=== PATIENT | female | born 1940 | race Caucasian/White ===

== ENCOUNTER → 2023-11-18 13:36 | Outpatient (BNVA) | payer OTHER, SELFPAY | PROVIDERS: Visit Provider Emergency Medicine | DX: R09.81 Nasal congestion (principal) | CPT/HCPCS: 87400; 87426 ==

== ENCOUNTER → 2023-11-30 10:45 | Outpatient (BNVA) | payer OTHER, SELFPAY | PROVIDERS: Visit Provider Family Medicine | DX: I50.9 Heart failure, unspecified (principal); E78.5 Hyperlipidemia, unspecified; E11.9 Type 2 diabetes mellitus without complications; M10.9 Gout, unspecified | CPT/HCPCS: 80053; 80061; 81000; 83036; 84439; 84443; 84550; 85025 ==

== ENCOUNTER 2024-04-01 21:55 | Emergency (ER) | payer OTHER, SELFPAY ==
--- NOTE | 2024-04-01 21:59 | XRR_ITS ---
PROCEDURE INFORMATION: Exam: XR Chest Exam date and time: 04/01/2024 10:13 PM Age: 83 years old Clinical indication: Pain; Chest pressure; Prior surgery; Surgery date: 6+ months; Surgery type: Heart valve; Additional info: Cp TECHNIQUE: Imaging protocol: Radiologic exam of the chest. Views: 1 view. COMPARISON: No relevant prior studies available. FINDINGS: Lungs: Bibasilar atelectasis versus infiltrate. Emphysematous changes. Pleural spaces: Unremarkable. No pleural effusion. No pneumothorax. Heart/Mediastinum: Cardiomegaly. TAVR. Bones/joints: Unremarkable. XR/XR chest 1V portable [id number] IMPRESSION: 1. Bibasilar atelectasis versus infiltrate. 2. Cardiomegaly. 3. Emphysematous changes. 4. TAVR.
--- NOTE | 2024-04-01 21:59 | ECG_ITS ---
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 Measurements Intervals [place] Rate: 73 P: 81 MS: 193 QRS: -83 QRSD: 137 T: 93 QT: 406 QTc: 449 Interpretive Statements SINUS RHYTHM INTRAVENTRICULAR CONDUCTION DELAY [130+ ms QRS DURATION] LEFT VENTRICULAR HYPERTROPHY AND ST-T CHANGE [VOLTAGE CRITERIA PLUS ST/T ABNORMALITY] POSSIBLE ANTEROSEPTAL MYOCARDIAL INFARCTION , OF INDETERMINATE AGE [30 ms Q WAVE IN V1-V4] No previous ECG available for comparison Electronically Signed On 04-03-2024 0:14:04 CDT by Araceli Duran M.D. [id number]
[2024-04-01 22:05] VITALS: BP 152/80; PULSE 71; RESP 20; TEMP 36.1
[2024-04-01 22:52] LABS: Basophils # 0.1 10^3/uL (0.0-0.1); Basophils % 0.4 %; Eosinophils # 0.1 10^3/uL (0.0-0.8); Eosinophils % 0.7 %; Hematocrit 51.9 % (36-47); Lymphocytes # 1.1 10^3/uL (0.8-4.8); Lymphocytes % 7.2 %; Mean Corpuscular HGB Conc 31.4 g/dL (30-55); Mean Platelet Volume 9.7 fL (7.4-10.4); Monocytes % 6.5 %; Neutrophils # 12.46 10^3/uL (1.8-7.7); Neutrophils % 84.9 %; Nucleated Red Blood Cells % 0 %; Platelet Count 179 10^3/cmm (157-399); Red Blood Count 5.09 10^6/uL (3.85-5.65); Red Cell Distribution Width 14.6 % (12.1-15.1); White Blood Count 14.69 10^3/uL (3.29-11.43)
[2024-04-01 23:00] VITALS: BP 190/64; PULSE 83; RESP 19; O2SAT 83
[2024-04-01 23:04] LABS: INR 1.04 (0.8-1.2)
[2024-04-01 23:09] LABS: Alanine Aminotransferase 9 U/L (0-33); Alkaline Phosphatase 95 U/L (35-105); Anion Gap 19.5 (5-19); Aspartate Amino Transferase 14 U/L (0-32); Blood Urea Nitrogen 52 mg/dL (8-23); Carbon Dioxide 22 mmol/L (22-29); Chloride 102 mmol/L (98-107); Creatinine Clr Calc Pharmacy 19.2233; Globulin 2.3 g/dL (1.3-4.6); Glucose 289 mg/dL (65-115); Lipase 35 U/L (13-60); Osmolality Calculated 313 mOsm/kg (285-295); Potassium 4.5 mmol/L (3.5-5.1); Sodium 139 mmol/L (136-145); Total Bilirubin 0.6 mg/dL (0.15-1.2); Total Protein 6.3 g/dL (6.6-8.7)
--- NOTE | 2024-04-01 23:11 | W.ED.CHESTPA ---
HPI - Chest Pain General: Chief Complaint: Chest Pain Stated Complaint: CP Time Seen by Provider: 04/01/24 23:05 History of Present Illness: Patient presents to the ER with about a 30-minute history of chest pain. Patient does not do anything when this pain started nor did she do anything anyway on its own. Patient denies any nausea vomiting, shortness of breath, diaphoresis, patient does have congestive heart failure and has 2 cardiac stents and aortic valve replaced. Patient is on Plavix and Bumex. Patient is pain-free at this time. Related Data Home Medications Medication Instructions Recorded Confirmed levothyroxine 50 mcg capsule 50 mcg PO DAILY 11/18/23 03/13/24 pantoprazole 40 mg tablet,delayed 40 mg PO DAILY 11/18/23 03/13/24 release Previous Rx's Medication Instructions Recorded allopurinol 100 mg tablet 100 mg PO DAILY #90 tabs 12/04/23 metoprolol tartrate 50 mg tablet 50 mg PO DAILY #180 tabs 12/04/23 pravastatin 80 mg tablet 80 mg PO DAILY #90 tabs 12/11/23 coQ10 (ubiquinol) 100 mg capsule 100 mg PO BID #180 caps 01/02/24 (Qunol Tip CoQ10) bumetanide 2 mg tablet 2 mg PO BID #120 tabs 01/25/24 cholecalciferol (vitamin D3) 250 250 mcg PO .qweekly #24 caps 03/13/24 mcg (10,000 unit) capsule potassium chloride 20 mEq 20 meq PO DAILY #90 tabs 03/13/24 tablet,extended release clopidogrel 75 mg tablet See Rx Instructions .Route 03/24/24 .COMPLEX #30 tabs Allergies Allergy/AdvReac Type Severity Reaction Status Date / Time acetaminophen [From Percocet] Allergy ADR-Irritab Verified 03/13/24 10:39 le albuterol Allergy ADR-Irritab Verified 03/13/24 10:39 le oxycodone [From Percocet] Allergy ADR-Irritab Verified 03/13/24 10:39 le Review of Systems General: Reports: 10 or more systems reviewed and unremarkable except in HPI and below PFSH ED PFSH: Medical History Hyperlipidemia Peripheral artery disease 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 Jain 01/31 History of right-sided carotid endarterectomy [facility] Polanco 01/29 Hx of thyroidectomy partial, 1999, History of hysterectomy History of angioplasty History of left hip replacement History of endarterectomy Social History Smoking and tobacco/nicotine status: former use of tobacco/nicotine Alcohol intake: never Substance/Drug Use: never Adopted: Yes (Grew up in foster care but never was adopted, knew mother and father) Caregiver/support person: No Lives independently: Yes Physical Exam Const: COMMON NORMALS: no acute distress, average body habitus, patient oriented x3, no limitations, healthy appearing, alert and well nourished HENMT: COMMON NORMALS: normocephalic, atraumatic, hearing grossly normal bilaterally, external ears normal, Normal external nose present and moist oral mucous membranes HEAD & SCALP: normocephalic and atraumatic NOSE: Normal external nose present EXTERNAL EAR: Yes external ears normal Neck/C-Spine: COMMON NORMALS: no JVD Chest: COMMONS NORMALS: normal inspection of the chest and normal palpation of entire chest wall Resp: COMMON NORMALS: normal respiratory effort, No retractions, No use of accessory muscles and clear to auscultation bilaterally AUSCULTATION: clear to auscultation bilaterally Cardio: COMMON NORMALS: no JVD, regular rate, regular rhythm, S1 normal heart sound present, S2 normal heart sound present, No gallops present (Cardio), No clicks present (Cardio), No murmurs present (Cardio) and No rub (Cardio) RATE: regular rate RHYTHM: regular rhythm HEART SOUNDS: S1 normal heart sound present and S2 normal heart sound present GI: COMMON NORMALS: Normal to inspection, nondistended, normoactive bowel sounds present, Soft to palpation, non-tender, No hepatosplenomegaly present and no masses PALPATION: Yes Soft to palpation and Yes No hepatosplenomegaly present Neuro: COMMON NORMALS: patient oriented x3 SENSORIUM/ORIENTATION: Yes alert Course Vital Signs: Vital signs: Vital Signs Temperature 97.0 F L 04/01/24 22:05 Pulse Rate 57 L 04/02/24 01:00 Respiratory Rate 20 H 04/02/24 01:00 Blood Pressure 113/55 04/02/24 01:00 Pulse Oximetry 89 L 04/02/24 01:00 Oxygen Delivery Me thod Nasal Cannula 04/02/24 00:00 Oxygen Flow Rate 2 04/02/24 00:00 MDM - Chest Pain Medical Decision Making Patient was worked up in a standard cardiac fashion with serial EKGs, enzymes, lab work, discussed his results with patient patient has oxygen at home. Patient be discharged home to follow-up with PCP. Differential Diagnosis Unlikely acute massive pulmonary embolism, acute respiratory failure, acute myocardial infarction, cardiac arrest or sudden cardiac Medical Records I reviewed the patient's medical records. Lab Data I reviewed the patient's lab results. 04/01/24 22:40 04/01/24 22:40 Radiology Impressions Chest X-Ray 04/01/24 21:59 IMPRESSION: 1. Bibasilar atelectasis versus infiltrate. 2. Cardiomegaly. 3. Emphysematous changes. 4. TAVR. Laboratory Results WBC 14.69 10^3/uL (3.29-11.43) H 04/01/24 22:40 RBC 5.09 10^6/uL (3.85-5.65) 04/01/24 22:40 Hgb 16.30 g/dL (11.27-16.99) 04/01/24 22:40 Hct 51.9 % (36-47) H 04/01/24 22:40 MCV 102.0 fl (85-98) H 04/01/24 22:40 MCH 32.0 pg (27-33) 04/01/24 22:40 MCHC 31.4 g/dL (30-55) 04/01/24 22:40 RDW 14.6 % (12.1-15.1) 04/01/24 22:40 Plt Count 179 10^3/cmm (157-399) 04/01/24 22:40 MPV 9.7 fL (7.4-10.4) 04/01/24 22:40 Neut % (Auto) 84.9 % 04/01/24 22:40 Lymph % (Auto) 7.2 % 04/01/24 22:40 Jennings % (Auto) 6.5 % 04/01/24 22:40 Eos % (Auto) 0.7 % 04/01/24 22:40 Baso % (Auto) 0.4 % 04/01/24 22:40 Neut # (Auto) 12.46 10^3/uL (1.8-7.7) H 04/01/24 22:40 Lymph # (Auto) 1.1 10^3/uL (0.8-4.8) 04/01/24 22:40 Jennings # (Auto) 1.0 10^3/uL (0.2-0.9) H 04/01/24 22:40 Eos # (Auto) 0.1 10^3/uL (0.0-0.8) 04/01/24 22:40 Baso # (Auto) 0.1 10^3/uL (0.0-0.1) 04/01/24 22:40 Nucleated RBC % (auto) 0 % 04/01/24 22:40 Nucleated RBCs # 0.0 /100WBC 04/01/24 22:40 PT 14.00 SECONDS (12.1-14.9) 04/01/24 22:40 INR 1.04 (0.8-1.2) 04/01/24 22:40 Sodium 139 mmol/L (136-145) 04/01/24 22:40 Potassium 4.5 mmol/L (3.5-5.1) 04/01/24 22:40 Chloride 102 mmol/L (98-107) 04/01/24 22:40 Carbon Dioxide 22 mmol/L (22-29) 04/01/24 22:40 Anion Gap 19.5 (5-19) H 04/01/24 22:40 BUN 52 mg/dL (8-23) H 04/01/24 22:40 Creatinine 2.3 mg/dL (0.5-0.9) H 04/01/24 22:40 GFR Calculation Not Reportable 04/01/24 22:40 Glucose 289 mg/dL (65-115) H 04/01/24 22:40 Calculated Osmolality 313 mOsm/kg (285-295) H 04/01/24 22:40 Calcium 9.0 mg/dL (8.5-10.5) 04/01/24 22:40 Total Bilirubin 0.6 mg/dL (0.15-1.2) 04/01/24 22:40 AST 14 U/L (0-32) 04/01/24 22:40 ALT 9 U/L (0-33) 04/01/24 22:40 Alkaline Phosphatase 95 U/L (35-105) 04/01/24 22:40 Troponin T Baseline 39 ng/L (0-10) H 04/01/24 22:40 Delta Troponin T 4.98 ABS# (0-10) 04/02/24 00:40 Total Protein 6.3 g/dL (6.6-8.7) L 04/01/24 22:40 Albumin 4.0 g/dL (3.5-5.2) 04/01/24 22:40 Globulin 2.3 g/dL (1.3-4.6) 04/01/24 22:40 Lipase 35 U/L (13-60) 04/01/24 22:40 All radiology interpretation(s) finalized by discharge Discharge Plan Discharge Patient Disposition: Home Clinical Impression: Atypical chest pain Chronic kidney disease Qualifiers: Chronic kidney disease stage: unspecified stage Qualified Code(s): N18.9 - Chronic kidney disease, unspecified Condition: Stable Prescriptions: No Action levothyroxine 50 mcg capsule 50 mcg PO DAILY pantoprazole 40 mg tablet,delayed release (DR/EC) 40 mg PO DAILY cholecalciferol (vitamin D3) 250 mcg (10,000 unit) capsule 250 mcg PO .qweekly Qty: 24 2RF potassium chloride 20 mEq tablet extended release 20 meq PO DAILY Qty: 90 1RF allopurinol 100 mg tablet 100 mg PO DAILY Qty: 90 1RF metoprolol tartrate 50 mg tablet 50 mg PO DAILY Qty: 180 1RF pravastatin 80 mg tablet 80 mg PO DAILY Qty: 90 1RF coQ10 (ubiquinol) [Qunol Tip CoQ10] 100 mg capsule 100 mg PO BID Qty: 180 2RF bumetanide 2 mg tablet 2 mg PO BID Qty: 120 2RF clopidogrel 75 mg tablet See Rx Instructions .ROUTE .COMPLEX Qty: 30 1RF Dose Instruction: TAKE 1 TABLET BY MOUTH EVERY DAY Rx Instructions: TAKE 1 TABLET BY MOUTH EVERY DAY Discharge Orders: Discharge ED (Routine); Ordered 04/02/24 Ordered By: Andres Guevara Referrals: Yokasta Lee NP [Primary Care Provider] - 1 week Patient Instructions: Chest Pain (ED) Activity Restrictions/Additional Instructions: Your evaluation ER did not show any acute cardiac cause for your chest pain. Your chest pain is felt to be noncardiac in nature. If your symptoms return or worsen please feel free to return to the ER for further evaluation otherwise please follow-up with your family practice physician in the next 7 to 10 days. 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
[2024-04-01 23:12] LABS: Troponin(5th) Baseline 39 ng/L (0-10)
[2024-04-01 23:30] VITALS: BP 142/104; PULSE 66; RESP 20; O2SAT 91
[2024-04-01] MEDS: cloNIDine 0.1 mg Tablet PO (23:31)
--- NOTE | 2024-04-01 23:59 | ECG_ITS ---
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 Measurements Intervals [place] Rate: 65 P: 87 NC: 204 QRS: 258 QRSD: 133 T: 81 QT: 432 QTc: 451 Interpretive Statements SINUS RHYTHM INTRAVENTRICULAR CONDUCTION DELAY [130+ ms QRS DURATION] RIGHT VENTRICULAR HYPERTROPHY [SOME/ALL OF: PROMINENT R IN V1, LATE TRANSITION, RAD, CADEN, SSS] ANTEROSEPTAL MYOCARDIAL INFARCTION , OF INDETERMINATE AGE [40+ ms Q WAVE IN V1-V4] No previous ECG available for comparison Electronically Signed On 04-03-2024 0:21:31 CDT by Araceli Duran M.D. [id number]
[2024-04-02] VITALS: BP 166/66; PULSE 73; RESP 24; O2SAT 93
[2024-04-02 00:30] VITALS: BP 127/59; PULSE 60; RESP 18; O2SAT 92
[2024-04-02 01:00] VITALS: BP 113/55; PULSE 57; RESP 20; O2SAT 89
[2024-04-02 01:13] LABS: Troponin 5 2HR 43.98 ng/L (0-10); Troponin 5 2HR Delta 4.98 ABS# (0-10)
[2024-04-02 01:30] VITALS: BP 135/55; PULSE 54; RESP 19; O2SAT 93
[2024-04-02] MEDS: LORazepam 2 mg/mL INJ 1 mL 0.5 MG IVP (01:44)
== END 2024-04-02 01:55 | disposition home or self-care (01) ==
PROVIDERS: Emergency Medicine; Emergency Provider Emergency Medicine; PCP Nurse Practitioner Family
DX: R07.89 Other chest pain (principal); E11.22 Type 2 diabetes mellitus with diabetic chronic kidney disease; I13.0 Hypertensive heart and chronic kidney disease with heart failure and stage 1 through stage 4 chronic kidney disease, or unspecified chronic kidney disease; N18.4 Chronic kidney disease, stage 4 (severe); I50.9 Heart failure, unspecified; Z87.891 Personal history of nicotine dependence; Z79.02 Long term (current) use of antithrombotics/antiplatelets
CPT/HCPCS: 36415; 71045; 80053; 83690; 84484; 85025; 85610; 93005; 96374; 99285; J2060

== ENCOUNTER → 2024-04-02 13:20 | Outpatient (BNVA) | payer MEDICARE, SELFPAY | PROVIDERS: PCP Nurse Practitioner Family; Visit Provider Nurse Practitioner Family | DX: E11.22 Type 2 diabetes mellitus with diabetic chronic kidney disease (principal); I12.9 Hypertensive chronic kidney disease with stage 1 through stage 4 chronic kidney disease, or unspecified chronic kidney disease; N18.4 Chronic kidney disease, stage 4 (severe) | CPT/HCPCS: 82043; 82310; 83036; 83970; 84443 ==

== ENCOUNTER 2024-05-01 13:55 | Outpatient (CLI) | payer MEDICARE, SELFPAY ==
--- NOTE | 2024-05-01 14:00 | US_ITS ---
WS: [id number] RENAL ULTRASOUND HISTORY: Chronic kidney disease stage IV COMPARISON: None available. TECHNIQUE: 2-D and color Doppler imaging of the kidney submitted. Right kidney: 9.6 cm x 4.7 cm x 4.7 cm. Cortex: 1.0 cm Mild diffuse cortical thinning. No atrophy. No obstruction. Slightly lobulated appearance of the justin ex. No mass. Mild increased in echogenicity. Left kidney: 10.5 cm x 4.7 cm x 5.3 cm. Cortex: 1.5 cm Normal size kidney. Cortex remains normal size. Mild increased echogenicity. No obstruction or mass. Aorta: Normal. Urinary Bladder: Normal distention. US/US renal BI* [id number] IMPRESSION: 1. Mild increased echogenicity indicating chronic medical renal disease. 2. No hydronephrosis or mass.
== END 2024-05-01 13:56 | disposition home or self-care (01) ==
LOC: RAD 13:55
PROVIDERS: PCP Nurse Practitioner Family; Visit Provider Nurse Practitioner Family
DX: I12.9 Hypertensive chronic kidney disease with stage 1 through stage 4 chronic kidney disease, or unspecified chronic kidney disease (principal); N18.4 Chronic kidney disease, stage 4 (severe)
CPT/HCPCS: 76770; 82043; 82310; 83036; 83970; 84443

== ENCOUNTER → 2024-08-12 11:46 | Outpatient (BNVA) | payer MEDICARE, SELFPAY | PROVIDERS: Visit Provider Family Medicine | DX: E03.9 Hypothyroidism, unspecified (principal); E11.22 Type 2 diabetes mellitus with diabetic chronic kidney disease; I12.9 Hypertensive chronic kidney disease with stage 1 through stage 4 chronic kidney disease, or unspecified chronic kidney disease; N18.4 Chronic kidney disease, stage 4 (severe) | CPT/HCPCS: 80053; 83036; 84439; 84443; 85025 ==

== ENCOUNTER 2025-07-09 19:19 | Emergency (ER) | payer MEDICARE, SELFPAY ==
--- NOTE | 2025-07-09 19:21 | XRR_ITS ---
PROCEDURE INFORMATION: Exam: XR Right Knee Exam date and time: 07/09/2025 7:53 PM Age: 84 years old Clinical indication: Injury or trauma; Fall; Blunt trauma; Knee; Right; Additional info: Pain TECHNIQUE: Imaging protocol: Radiologic exam of the right knee. Views: 3 views. COMPARISON: No relevant prior studies available. FINDINGS: Bones/joints: Severe joint space narrowing in the medial compartment of the right knee with osteophyte formations. Small joint effusion. Moderate to severe degenerative changes in the patellofemoral compartment. No acute fracture. Soft tissues: Normal. XR/XR knee RT 3V* [id number] IMPRESSION: 1. Small joint effusion. 2. No acute fracture.
--- OUTSIDE RECORDS SUMMARY | 2025-07-09 19:36 | XMS_ITS | Encounter Summary ---
Author Organization [facility], [facility] Address [address] [place] [address] Phone Care Team Providers Care Sales Coach Name Role Phone Sahil Shin MD Primary Care Provider [phone] Encounter Details Date Type Department Care Team (Late st Contact Info) Description 05/07/2024 Orders Only [facility] [address] [place] [address] Chronic kidney disease, not otherwise specified Social History Tobacco Use Types Packs/Day Years Used Date Smoking Tobacco: Former Cigarettes 38 0 01/21/1955 - 01/18/1993 Smokeless Tobacco: Never Alcohol Use Standard Drinks/Week Comments No 0 (1 standard drink = 0.6 oz pur e alcohol) Comments Unknown Sex and Gender Information Value Date Recorded Sex Assigned at Not on file Legal Sex Female 12:45 PM EDT Gender Identity Not on file Sexual Orientation Not on file documented as of this encounter Plan of Treatment Not on file documented as of this encounter Visit Diagnoses Diagnosis Chronic kidney disease, not otherwise specified documented in this encounter Care Teams Sales Coach Relationship Specialty Start Date End Date Sahil Shin MD [address] [place] [id number] PCP - General Internal Medicine 08/15/22 documented as of this encounter
--- OUTSIDE RECORDS SUMMARY | 2025-07-09 19:36 | XMS_ITS | Clinical Summary ---
Author Organization [facility] Address [address] [place] [address] Care Team Providers Care Hospice Clinical Manager Name Role Phone Sahil Shin MD Primary Care Provider [phone] Allergies Active Allergy Reactions Criticality Noted Date Comments Acetaminophen 12/25/2023 Albuterol 11/29/2020 Oxycodone-Acetaminophen 08/16/2022 Medications allopurinol (ZYLOPRIM) 300 MG tablet 1 (one) time each day Active bumetanide (BUMEX) 2 MG tablet Take 2 mg by mouth in the morning and 2 mg in the evening. 2 Active gabapentin (NEURONTIN) 100 MG capsule 2 (two) times a day Active levothyroxine (SYNTHROID, LEVOTHROID) 50 MCG tablet Take 50 mcg by mouth 1 (one) time each day 2 Active metoprolol succinate XL (TOPROL XL) 50 MG 24 hr tablet Take 50 mg by mouth 1 (one) time each day 2 Active pantoprazole (PROTONIX) 40 MG EC tablet 1 (one) time each day Active Januvia 50 MG tablet 1 (one) time each day 3 Active potassium chloride (KLOR-CON M10) 10 MEQ CR tablet 2 (two) times a day Active clopidogrel (PLAVIX) 75 MG tablet Take 75 mg by mouth 1 (one) time each day 2 Active pravastatin (PRAVACHOL) 80 MG tablet Take 80 mg by mouth 1 (one) time each day 2 Active coenzyme Q-10 100 MG capsule 1 capsule at bed time Active cholecalciferol (VITAMIN D-3) 250 MCG (37130 UT) capsule Take 10,000 Units by mouth per week 2 Active ascorbic acid (VITAMIN C) 1000 MG tablet Take 1,000 mg by mouth 1 (one) time each day Active ferrous sulfate 325 (65 Fe) MG tablet Take 1 tablet by mouth in the morning and 1 tablet in the evening. Active furosemide (LASIX) 40 MG tablet Take 40 mg by mouth 1 (one) time each day Active levalbuterol (XOPENEX) 1.25 MG/3ML nebulizer solution Take 1 ampule by nebulization every 8 (eight) hours if needed for wheezing or shortness of breath Active lisinopril 2.5 MG tablet Take 1 tablet by mouth 1 (one) time each day Active meloxicam (MOBIC) 15 MG tablet Take 15 mg by mouth 1 (one) time each day Active Active Problems Problem Noted Date Diagnosed Date Acquired hypothyroidism 08/16/2022 Carotid endarterectomy 08/16/2022 Chronic gouty arthritis 08/16/2022 Chronic kidney disease due to type 2 diabetes me llitus 08/16/2022 Chronic kidney disease stage 4 08/16/2022 Chronic obstructive pulmonary disease 08/16/2022 Coronary arteriosclerosis 08/16/2022 Disorder of carotid artery 08/16/2022 Dyslipidemia 08/16/2022 Edema 08/16/2022 Gout 08/16/2022 Hyperlipidemia 08/16/2022 Hyperparathyroidism due to renal insufficiency 0 08/16/2022 Urinary tract infectious disease 08/16/2022 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 08/16/2022 Resolved Problems Problem Noted Date Diagnosed Date Resolved Date Acute nasopharyngitis (common cold) 08/16/2022 02/28/2023 Chronic kidney disease due to hypertension 08/16/2022 02/28/2023 Congestive heart failure 08/16/2022 Immunizations Immunization Administration Dates Next Due Influenza Split High Dose Pr eservative Free IM 04/13/2020,04/13/2019 Influenza TIV (IM) 04/13/2022,04/13/2021 Moderna SARS-COV-2 10/14/2021,10/27/2020, 021 Pneumococcal Conjugate 13-Valent 05/20/2019,10/0 08/2018 SARS-CoV-2, Unspecified 07/13/2021 Family History * Patient is adopted Medical History Relation Comments Diabetes Mother Cancer Sibling Relation Status Comments Father Mother Sibling Social History Tobacco Use Types Packs/Day Years Used Date Smoking Tobacco: Former Cigarettes 38 0 01/21/1955 - 01/18/1993 Smokeless Tobacco: Never Tobacco Cessation:Counseling Given: Not Answered Alcohol Use Standard Drinks/Week Comments No 0 (1 standard drink = 0.6 oz pur e alcohol) Comments Unknown Sex and Gender Information Value Date Recorded Sex Assigned at Not on file Legal Sex Female 12:45 PM EDT Gender Identity Not on file Sexual Orientation Not on file Last Filed Vital Signs Vital Sign Reading Time Taken Comments Blood Pressure 145/87 02/28/2023 9:24 AM CDT Pulse 60 02/28/2023 9:24 AM CDT Temperature 36.6 C (97.8 F) 02/28/2023 9:24 AM CDT Respiratory Rate 16 02/28/2023 9:24 AM CDT Oxygen Saturation - - Inhaled Oxygen Concentration - - Weight 94.4 kg (208 lb 3.2 oz) 02/28/2023 9:24 A M CDT Height 162.6 cm (5' 4 ) 02/28/2023 9:24 AM CDT Body Mass Index 35.74 02/28/2023 9:24 AM CDT Plan of Treatment Health Maintenance Due Date Last Done Comments Pneumococcal Vaccine: 50+ Years (2 of 2 - PPSV23, PCV20, or PCV21) 07/15/2019 05/20/2019, 05/13/2019 Diabetes: Hemoglobin A1C 12/17/2023 06/02/2022 Diabetes: Ophthalmology Exam 12/17/2023 Diabetes: Pedal Pulse Checked 12/17/2023 Diabetes: Sensory Foot Exam 12/17/2023 Diabetes: Visual Foot Exam 12/17/2023 Influenza Vaccine (#1) 2025 2, 04/13/2021, 04/13/2020, Additional history exists Hepatitis B Vaccine Aged Out No longe r eligible based on patient's age to complete this topic Procedures Procedure Name Priority Date/Time Associated Diagnosis Comments HEMOGLOBIN A1C (EXTERNAL RESULT ENTRY) Routine 06/02/2022 from Last 3 Months or Most Recently Relevant to Health Maintenance Results * Hemoglobin A1C (06/02/2022) Hemoglobin A1C 7.1 Blood specimen (specimen) Venous blood / Unknown 06/02/2022 Sahil Shin MD LAB BLOOD ORDERABLES Final R esult from Last 3 Months or Most Recently Relevant to Health Maintenance [place] [address] [place] [address] Care Teams Hospice Clinical Manager Relationship Specialty Start Date End Date Sahil Shin MD [address] [place] [id number] PCP - General Internal Medicine 08/15/22
--- OUTSIDE RECORDS SUMMARY | 2025-07-09 19:36 | XMS_ITS | Data Portability ---
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 [email or web address] Not available 08/24/2021 10:34:37 09/30/2021 09/30/2021 More than 50% of this 30 minute encounter was spent discussing the patient s diagnoses, treatment options, and coordinating care. [email or web address] Not available 09/30/2021 10:24:55 12/06/2021 12/06/2021 More than 50% of this 30 minute encounter was spent discussing the patient s diagnoses, treatment options, and coordinating care. [email or web address] Not available 12/06/2021 16:05:38 Plan of Treatment Reminders Order Date Submit Date Provider Last Modified By Organization Details Last Modified Time Details Appointments None recorded. Lab None recorded. Referral None recorded. Procedures None recorded. Surgeries None recorded. Imaging None recorded. Medication Orders Xopenex 1.25 mg/3 mL solution for nebulizatio n 2021 022 [facility], [address] [place], [address], 11:28:30 Trelegy Ellipta 100 mcg-62.5 mcg-25 mcg powder for inhalation 2021 022 [email or web address] 3 [facility], [address] [place], [address], 2 11:50:25 Symbicort 160 mcg-4.5 mcg/actuati on HFA aerosol inhaler 2018 019 [email or web address] [facility], [address] [place], [address], 2 10:51:22 Symbicort 160 mcg-4.5 mcg/actuati on HFA aerosol inhaler 2018 019 [email or web address] [facility], [address] [place], [address], 2 10:51:22 Patient TargetsNo targets recorded. Patient Instructions Encounter Date Encounter Id Patient Instructions Last Modified By Organization Details Last Modified Time 02/20/2019 [id number] chronic obstruct mookie pulmonary disease (COPD): care instructions Not available 02/20/2019 11:02:09 learning about c opd and how to prevent lung infections Not available 02/20/2019 11:02:09 Using and benefiting from continued oxygen use. Continue current medication regimen. For this patient encounter, I reviewed the mid-level provider's documentation, medical decision making and treatment plan, and I have personally spent time with the patient. [email or web address] Not available 02/20/2019 11:08:41 08/24/2021 [id number] chronic obstruct mookie pulmonary disease (COPD): care instructions [email or web address] Not available 08/24/2021 11:28:21 learning about c opd and how to prevent lung infections [email or web address] Not available 08/24/2021 11:28:22 09/30/2021 [id number] chronic obstruct mookie pulmonary disease (COPD): care instructions [email or web address] Not available 09/30/2021 10:40:59 learning about c opd and how to prevent lung infections [email or web address] Not available 09/30/2021 10:40:59 12/06/2021 [id number] discontinuation order* - discontinue home oxygen [email or web address] Not available 12/15/2021 16:48:27 chronic obstruct mookie pulmonary disease (COPD): care instructions [email or web address] Not available 12/06/2021 16:07:50 learning about c opd and how to prevent lung infections [email or web address] Not available 12/06/2021 16:07:50 Reason for Referral None Reported. Results Created Date Observation Date Name Description Value Unit Range Abnormal Flag Note LastModifiedBy Organization Detail LastModifiedTime 01/06/20 21 01/05/2021 XR, chest No observ ation record ed. [email or web address] Not Available 2020 12:53:54 08/03/20 21 08/02/2021 US, echoc ardio gram, trans thora cic, compl ete, w/ color flow No observ ation record ed. [email or web address] Not Available 2020 10:31:32 09/22/19 22 09/22/2021 CT, chest , w/o contr ast No observ ation record ed. [email or web address] [facility] (Radiology) [address], [place], [address], 09/27/2021 21:37:48 09/23/19 22 08/02/2021 US, echoc ardio gram No observ ation record ed. [facility] [address] [facility] [address], [place], [address], 09/26/2021 09:01:05 09/23/19 22 05/04/2021 US, doppl er, arter ial No observ ation record ed. [email or web address] Not Available 2021 09:02:10 09/23/19 22 08/10/2021 US, doppl er, arter ial No observ ation record ed. [email or web address] [address] [facility] [address], [place], [address], 09/26/2021 09:19:24 Result Notes None recorded. Problems Name Problem SNOMED Code Status Onset Date Resolution Date Notes Provider Name and Address Organization Details Recorded Time Chronic hypoxemic respiratory failure 672549006 Completed 11/12/2019 Liset Lazaro null, [facility] 0 16:42:17 Hypoxemia 562638274 Completed 11/12/2019 Liset Lazaro null, [facility] 0 16:42:22 Chronic obstructive pulmonary disease 60441761 Completed 11/12/2019 Michelle Myres null, [facility] 2 11:13:11 Severe chronic obstructive pulmonary disease 405484182 Completed 11/12/2019 Liset Lazaro null, [facility] 0 16:42:25 Chronic obstructive pulmonary disease 64795601 Active Michelle Myers null, [facility] 2 11:13:11 Congestive heart failure 69911354 Active [facility], [facility] 11:13:18 Gout 89500606 Active Michelle Myers null, [facility] 2 11:13:44 Edema 885822007 Active Michelle Myers null, [facility] 2 11:14:10 Hypothyroid ism 13807734 Active Michelle Myers null, [facility] 2 11:14:19 Gastroesoph ageal reflux disease 348758568 Active Michelle Myers null, [facility] 2 11:14:31 Hyperlipide jacob 70477138 Active Michelle Myers null, [facility] 2 11:14:43 Hypertensiv e disorder 86301194 Active [facility] 11:15:04 Problem Notes None recorded. Procedures Surgical History Date Name Laterality Status Provider Name and Address Organization Details Recorded Time 12/07/19 22 POCUS-US CHEST completed Indira Zafar MD [address] [place] [address], [address], [place], [address], [facility] 12/06/2021 16:38:12 04/19/20 21 transcatheter aortic valve replacement completed Michelle Myers [facility] 08/24/2021 11:12:35 02/11/20 21 angioplasty of aorta completed Michelle Myers [facility] 08/24/2021 11:12:14 01/12/20 21 angioplasty of aorta completed Michelle Myers [facility] 08/24/2021 11:12:03 08/13/19 20 popliteal-distal bypass completed Michelle Myers [facility] 08/24/2021 11:11:22 07/13/20 19 transesophageal echocardiography completed Michelle Myers [facility] 08/24/2021 11:10:35 01/12/20 19 carotid endarterectomy completed Michelle Myers [facility] 08/24/2021 11:06:33 11/17/19 10 Other completed Tori Marie [facility] 01/10/2018 10:43:29 10/12/19 10 cardiac catheterization completed Michelle Myers [facility] 08/24/2021 11:10:04 03/13/20 02 extraction of cataract completed Michelle Myers [facility] 08/24/2021 11:08:17 11/12/19 02 extraction of cataract completed Michelletucker Myers [facility] 08/24/2021 11:08:07 08/13/19 01 bypass of subclavian artery completed Michelletucker Myers [facility] 08/24/2021 11:07:11 06/13/20 00 Thyroid Surgery completed Michelle Myers [facility] [place] 08/24/2021 11:08:58 03/13/19 85 hysterectomy completed Michelle Myers [facility] 08/24/2021 11:05:00 01/11/19 71 ligation of fallopian tube completed Michelletucker Myers [facility] 08/24/2021 11:04:48 laminectomy completed Michelletucker Myers [facility] 08/24/2021 11:05:39 Imaging Results None recorded. Procedure Notes None recorded. Medical Equipment None Reported. Allergies Allergen ID Allergen Name Allergen Category Reaction Reaction Severity Criticality Documentation Date Start Date Code Code System Note Provider Name and Address Organization Details Recorded Time 4553 albuterol medicatio n Not available Not available Not available 01/10/2018 435 RxNorm nervo us react ion Tori Marie [facility] 8 10:35:32 Medications Name Sig Start Date Stop Date Status Note LastModified by Organization Details LastModified Time furosemide 40 mg tablet Take 1 tablet every day by oral route for 90 days. active Not Available Not Available No t Available metolazone 2.5 mg tablet TAKE 1 TABLET BY MOUTH ONCE DAILY active Not Available Not Available No t Available bumetanide 2 mg tablet TAKE 1 TABLET BY MOUTH TWICE DAILY active Not Available Not Available No t Available pravastatin 40 mg tablet 01/10 completed Not Available Not Available Not Available metoprolol succinate ER 50 mg tablet,exte nded release 24 hr TAKE 1 TABLET BY MOUTH ONCE DAILY active Not Available Not Available No t Available hydrocodone 5 mg-acetamin ophen 325 mg tablet 02/20 completed Not Available Not Available Not Available meloxicam 15 mg tablet TAKE 1 TABLET BY MOUTH ONCE DAILY NEEDED WITH FOOD FOR PAIN active Not Available Not Available No t Available lisinopril 20 mg tablet 08/24 completed Not Available Not Available Not Available ondansetron HCl 4 mg tablet 02/20 completed Not Available Not Available Not Available Accu-Chek Softclix Lancets USE 1 TO CHECK GLUCOSE ONCE DAILY active Not Available Not Available No t Available hydralazine 25 mg tablet Take 2 tablets every day by oral route for 30 days. 11/21 completed Not Available Not Available Not Available potassium chloride ER 10 mEq tablet,exte nded release TAKE 1 TABLET BY MOUTH ONCE DAILY active Not Available Not Available No t Available clopidogrel 75 mg tablet TAKE 1 TABLET BY MOUTH ONCE DAILY active Not Available Not Available No t Available amlodipine 5 mg tablet 1 tablet at bedtime 12/06 completed Not Available Not Available Not Available allopurinol 100 mg tablet 01/10 completed Not Available Not Available Not Available omeprazole 40 mg capsule,del ayed release Take 1 capsule every day by oral route for 90 days. 08/24 completed Not Available Not Available Not Available aspirin 81 mg tablet,valente yed release Take 1 tablet every day by oral route. 12/06 completed Not Available Not Available Not Available tramadol 50 mg tablet TAKE 1 TABLET BY MOUTH EVERY 8 HOURS NEEDED FOR PAIN active Not Available Not Available No t Available glimepiride 2 mg tablet 08/24 completed Not Available Not Available Not Available Depo-Medrol 80 mg/mL suspension for injection Take 1 mg by injection route. 11/21 completed Not Available Not Available Not Available levothyroxi ne 25 mcg tablet 01/10 completed Not Available Not Available Not Available alprazolam 0.25 mg tablet 01/10 completed Not Available Not Available Not Available pravastatin 80 mg tablet TAKE 1 TABLET BY MOUTH ONCE DAILY active Not Available Not Available No t Available Vitamin C 1,000 mg tablet Take 1 tablet every day by oral route. active Not Available Not Available No t Available paroxetine 20 mg tablet Take 1 tablet every day by oral route for 90 days. 08/24 completed Not Available Not Available Not Available pantoprazol e 40 mg tablet,valente yed release TAKE 1 TABLET BY MOUTH IN THE MORNING FOR 90 DAYS active Not Available Not Available No t Available metoprolol tartrate 50 mg tablet Take 1 tablet every day by oral route for 90 days. 08/24 completed Not Available Not Available Not Available nitroglycer in 0.4 mg sublingual tablet as needed active Not Available Not Available No t Available aspirin 81 mg chewable tablet 08/24 completed Not Available Not Available Not Available Euthyrox 50 mcg tablet TAKE 1 TABLET BY MOUTH ONCE DAILY active Not Available Not Available No t Available allopurinol 300 mg tablet TAKE 1 TABLET BY MOUTH ONCE DAILY active Not Available Not Available No t Available furosemide 20 mg tablet 01/10 completed Not Available Not Available Not Available gabapentin 100 mg capsule TAKE 2 CAPSULES BY MOUTH TWICE DAILY active Not Available Not Available No t Available levalbutero l 1.25 mg/3 mL solution for nebulizatio n USE 1 VIAL IN NEBULIZER EVERY 8 HOURS active Not Available Not Available No t Available paroxetine 40 mg tablet 01/10 completed Not Available Not Available Not Available lisinopril 40 mg tablet 08/15 completed Not Available Not Available Not Available lisinopril 2.5 mg tablet TAKE 1 TABLET BY MOUTH ONCE DAILY active Not Available Not Available No t Available naproxen 500 mg tablet 11/21 completed Not Available Not Available Not Available Ventolin HFA 90 mcg/actuati on aerosol inhaler 01/10 completed Not Available Not Available Not Available potassium chloride ER 10 mEq tablet,exte nded release(par t/cryst) active Not Available Not Available Not Available metoprolol tartrate 25 mg tablet 11/21 completed Not Available Not Available Not Available BD Ultra-Fine Mini Pen Needle 31 gauge x 3/16 08/15 completed Not Available Not Available Not Available cholecalcif noah (vitamin D3) 250 mcg (10,000 unit) capsule TAKE 1 CAPSULE BY MOUTH ONCE A WEEK active Not Available Not Available No t Available fenofibrate 160 mg tablet Take 1 tablet every day by oral route for 90 days. 11/21 completed Not Available Not Available Not Available Vitamin D3 10,000 iu weekly 09/30 completed Not Available Not Available Not Available Symbicort 160 mcg-4.5 mcg/actuati on HFA aerosol inhaler Inhale 2 puffs twice a day by inhalatio n route. 08/24 completed Not Available Not Available Not Available FeroSul 325 mg (65 mg iron) tablet TAKE 1 TABLET BY MOUTH TWICE DAILY active Not Available Not Available No t Available Lantus Solostar U-100 Insulin 100 unit/mL (3 mL) subcutaneou s pen Inject 39 units every day by sub-q route for 50 days. 08/15 completed Not Available Not Available Not Available CoQ-10 100 mg capsule Take 1 capsule every day by oral route. active Not Available Not Available No t Available TRUEplus Lancets 33 gauge 02/20 completed Not Available Not Available Not Available Multi Vitamin daily active Not Available Not Available Not Available Arnuity Ellipta 100 mcg/actuati on powder for inhalation 08/24 completed Not Available Not Available Not Available Incruse Ellipta 62.5 mcg/actuati on powder for inhalation Inhale 1 puff every day by inhalatio n route for 30 days. 11/21 completed Not Available Not Available Not Available Accu-Chek Guide test strips USE 1 STRIP ONCE DAILY active Not Available Not Available No t Available Accu-Chek Guide Glucose Meter USE TO CHECK GLUCOSE ONCE DAILY active Not Available Not Available No t Available Trelegy Ellipta 100 mcg-62.5 mcg-25 mcg powder for inhalation INHALE 1 PUFF ONCE DAILY active Not Available Not Available No t Available Maximum D3 325 mcg (13,000 unit) capsule TAKE 1 CAPSULE BY MOUTH ONCE A WEEK active Not Available Not Available No t Available Vitals Date Recorded Body height Body mass index (BMI) Body weight Body temperature Heart rate Oxygen saturation Inhaled oxygen flow rate Systolic And Diastolic Provider Name and Address Organization Details Last Updated DateTime 2 162.56 cm 33.3 kg/m2 62261.9 2 g 97.9 [degF] 64 /min 86 % 3 L/min 90/51 mm[Hg] Breanna Frazier [facility] 2 10:56:42 Date Recorded Body height Body mass index (BMI) Body weight Body temperature Heart rate Respiratory rate Oxygen saturation Systolic And Diastolic Provider Name and Address Organization Details Last Updated DateTime 2 162.56 cm 29.2 kg/m2 62758.7 g 97.2 [degF] 73 /min 18 /min 96 % 137/70 mm[Hg] Michelle Myers [facility] 2 10:10:01 Date Recorded Body height Body mass index (BMI) Body weight Body temperature Heart rate Respiratory rate Systolic And Diastolic Provider Name and Address Organization Details Last Updated DateTime 9 162.56 cm 31.6 kg/m2 67297 g 97.6 [degF] 65 /min 16 /min 132/58 mm[Hg] Thais Freed CMA [facility] 9 09:58:14 Date Recorded Body height Body mass index (BMI) Body weight Body temperature Respiratory rate Heart rate Oxygen saturation Systolic And Diastolic Provider Name and Address Organization Details Last Updated DateTime 2 162.56 cm 28.8 kg/m2 47864.5 2 g 97.7 [degF] 18 /min 78 /min 97 % 147/82 mm[Hg] Rachel Myers [facility] 2 15:25:13 Date Recorded Body height Body mass index (BMI) Body weight Body temperature Heart rate Respiratory rate Oxygen saturation Systolic And Diastolic Provider Name and Address Organization Details Last Updated DateTime 9 162.56 cm 31.1 kg/m2 91713.2 2 g 98 [degF] 62 /min 16 /min 88 % 125/51 mm[Hg] Thais Freed CMA [facility] 9 10:33:22 Social History Question Answer Notes LastModified by Organizat ion Details LastModified Time Tobacco Smoking Status Former Smoker quit 30 years ago 1 ppd Rachel Myers [facility] [employer] 12/06/2021 15:26:44 What Is Your Level Of Caffeine Consumption? Occasional Information not available 09/30/2021 When Did You Quit Smoking? 16+yearssincel gina [email or web address] Information not available 12/06/2021 What Was The Date Of Your Most Recent Tobacco Screening? 12/06/2021 Information not available 12/06/2021 At What Age Did You Start Smoking Tobacco? 14 [email or web address] Information not available 12/06/2021 How Much Tobacco Do You Smoke? No Information not available 12/06/2021 Has Tobacco Cessation Counseling Been Provided? No Information not available 12/06/2021 How Many Years Have You Smoked Tobacco? 40 [email or web address] Information not available 01/10/2018 Sex: Unknown Functional Status Question Answer Note LastModified by Organizat ion Details LastModified Time Do you use any illicit or recreational drugs? No [email or web address] Information not available 09/30/2021 Do you or have you ever used any other forms of tobacco or nicotine? No Information not available 12/06/2021 What is your level of alcohol consumption? None Information not available 09/30/2021 Mental Status None recorded. Family History Relationship Description Onset Age of this Age Resolved Age Notes LastModified by Organization Details LastModified Time Mother Problem colon, htn,he art Not available 01/10/2018 10:37:27 Daughter Diabetes mellitus [email or web address] Not available 2017 10:36:36 Brother Problem htn,shasha ng Not available 01/10/2018 10:37:16 Medical History Condition Response USE OF BLOOD THINNERS Y ASTHMA Y HEART DISEASE Y KIDNEY DISEASE/KIDNEY PROBLEMS Y Gynecological HistoryNo gynecological history recorded. Obstetrics History GPAL:G 0 P 0 0 0 0 Immunizations Vaccine Type Date Status Note Provider Nam e and Address Organization Details Recorded Time COVID-19, mRNA, LNP-S, PF, 100 mcg/0.5mL dose or 50 mcg/0.25mL dose 2 completed Xu Young alvin, [facility] 05/30/2022 11:36:55 Pneumococcal conjugate PCV 13 10/08/201 9 completed Beat[facility]ighton [facility] 08/23/2021 12:32:03 Influenza, high-dose, quadrivalent, PF 0 [facility] 08/23/2021 12:32:17 COVID-19, mRNA, LNP-S, PF, 100 mcg/0.5mL dose or 50 mcg/0.25mL dose 1 completed Beatrice Caicedo [facility] 08/23/2021 12:32:26 COVID-19, mRNA, LNP-S, PF, 100 mcg/0.5mL dose or 50 mcg/0.25mL dose 1 completed Beatrice [facility]iced[facility] 08/23/2021 12:32:31 Influenza, high-dose, quadrivalent, PF 1 completed [facility] 08/24/2021 15:44:53 Past Encounters Encounter ID Performer Location Encounter Start Date Encounter Closed Date Diagnosis/Indication Diagnosis SNOMED-CT Code Diagnosis ICD10 Code Diagnosis IMO Codes Diagnosis Note [id number] Radha Ferreira MD [facility] [address] [address] 01/10/2018 10:08:47 01/10/2018 17:22:16 Chronic obstructive pulmonary disease 51017829 J44.9 [id number] MD [facility] [address] [place] [address],[address] [place] [address] 08/15/2018 10:10:22 08/15/2018 11:31:46 Chronic obstructive pulmonary disease 79673759 J44.9 Hypoxemia 910143865 R09. 02 [id number] MD GORGE Stein [facility] [address] [place] [address],[address] [place] [address] 11/21/2018 09:47:03 11/21/2018 10:37:35 Severe chronic obstructive pulmonary disease 141291760 J44.9 Chronic hy poxemic respiratory failure 037178972 J96.11 [id number] MD GORGE Stein [facility] [address] [facility] [address] [place] [address] 02/20/2019 09:56:14 02/20/2019 11:07:53 Chronic obstructive pulmonary disease 74301946 J44.9 Chronic hy poxemic respiratory failure 327279995 J96.11 [id number] MD [facility]OLIE [facility] [address] [facility] [address] [place] [id number] 08/24/2021 10:22:22 08/24/2021 11:43:40 Chronic obstructive pulmonary disease 71982862 J44.9 >CAT score done 08/24/21 : 25- Use Xopenex nebulizer- Start Trelegy- Obtain PFts and CT chest from [facility]- Continue home oxygen Chronic hy poxemic respiratory failure 060831065 J96.11 History of aortic valve replacement 5549182521 100 Z95.4 [id number] MD [facility] [address] [facility] [address] [place] [address] 09/30/2021 09:59:40 09/30/2021 10:44:47 Chronic obstructive pulmonary disease 36305420 J44.9 >CAT score done 08/24/21 : 25>CT Chest emphysema- Use Xopenex nebulizer- Obtain PFts from [facility]- Continue home oxygen Chronic hy poxemic respiratory failure 304699799 J96.11 History of aortic valve replacement 5444528978 100 Z95.4 Chronic di astolic heart failure 370533878 I50.32 Pleural effusion 2006215 8 J90 Continue to monitor [id number] MD YOLIE Reeves [facility] [address] [facility] [address] [place] [id number] 12/06/2021 15:08:02 12/06/2021 17:52:18 Chronic obstructive pulmonary disease 47338852 J44.9 >CAT score done 08/24/21 : 25>FEV 1 69%>CT Chest emphysema- On Trelegy- Use Xopenex nebulizer Chronic hy poxemic respiratory failure 619999776 J96.11 D/c insurance oxygen History of aortic valve replacement 5573554813 100 Z95.4 Chronic di astolic heart failure 978142028 I50.32 On bumex Pleural effusion 6058159 8 J90 None seen on POCUS exam on 12/06/21 Health Concerns Section Related Observation LastModified by Organization Detai ls LastModified Time None Recorded Concern Status LastModified by Organization Details LastModified Time None Recorded Advance Directives Directive None Recorded Payers Insurance Date Sequence Insurance Name Policy Number Policy Canela Covered Member ID Canela Member ID Guarantor Name 08/23/2021 1 [employer] (MEDICARE REPLACEMENT/ ADVANTAGE - PPO) Colette Nicholson [id number] Colette Nicholson 06/05/2022 1 [employer] (MEDICARE REPLACEMENT/ ADVANTAGE - HMO) [id number] Colette Nicholson [id number] Colette Nicholson Notes Date Note Type Note Provider Name and Address Organization Details Recorded Time 9 text/html COPDReported by PatientHPIFor severity, patient reportsvery limitingbut reportsuses nebulizer/inhaler an average of ___ times/week lately(no inhalers). For associated symptoms, patient reportsdyspnea exertional,decrease in exercise capacity, andfatigue. For quality, patient reportssymptoms worse during the dayandsymptoms worse in the evening. For duration, patient reportsattacks are frequentandconstant. For onset/timing, patient reportsintermittentandchr onic: slowly much worse. For context, patient reportsrecurrent bronchopulmonary infections. For modifying factors, patient reportsrelieved with oxygenandrelieved with bronchodilator.ROS as noted in the HPI COPD wheezinguses O2 qhsincruse was stopped by Dr Best, and symbiocortO2 was 76% RAnot using portable Radha keely [facility] 11/21/2018 10:36:22 9 text/html COPDReported by PatientHPIFor severity, patient reportsvery limitingbut reportsuses nebulizer/inhaler an average of ___ times/week lately. For associated symptoms, patient reportsdyspnea exertional,decrease in exercise capacity, andfatigue. For quality, patient reportssymptoms worse during the dayandsymptoms worse in the evening. For duration, patient reportsattacks are frequentandconstant. For onset/timing, patient reportsintermittentandchr onic: slowly much worse. For context, patient reportsrecurrent bronchopulmonary infections. For modifying factors, patient reportsrelieved with oxygenandrelieved with bronchodilator.ROS as noted in the HPI COPD wheezinguses O2 qhssymbicortO2 was 88% RAnot using portableDr. Mary is cardiologistquit smoking 1992 [facility] [employer] [facility] 02/20/2019 11:08:49 2 text/html 80 yo female presented to [facility] for soB. Patient has significant cardiac history including TAVR, Former Smoker, CHF, GerD, HL, Hypothyroidism, HTN. Patient has SOB with minimal exertion- across the room. Admits to wheezing and dry cough. Has worse syptoms around a dog. Admits to swelling to LE swelling- on BUmex twice daily CONSTITUTIONAL SYMPTOMS: fever NO, loss of appetite NO, weight loss NO, night sweats NOFAMILY HX: Brother- lung problemSMOKING STATUS: FORMER SMOKER Quit in 1992, 2ppd for >30 years. 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 There is no focal consolidation or pneumothorax.IMPRESSION:N o significant interval change. Stable interstitial prominencesuggesting pulmonary vascular congestion and trace pleural effusions CT Chest: TTE:1Left VentricleThe left ventricle is normal in size. There is no thrombus. There is mildconcentric left ventricular hypertrophy. Ejection Fraction = 40%.Right VentricleThe right ventricle is grossly normal size.AtriaRight atrial size is normal. The left atrium is mildly dilated.Mitral ValveThere is no mitral valve stenosis. There is mild to moderate mitralregurgitation.Tricu spid ValveThere is no tricuspid stenosis. There is mild tricuspid regurgitation. PAsystolic pressure=38 mmHg.Aortic ValveSevere valvular aortic stenosis. Mild aortic regurgitation.Pulmonic ValveThe pulmonic valve is not well visualized.Great VesselsThe aortic root is normal size.Pericardium/PleuralT here is no pericardial effusion.Interpretation SummaryA two-dimensional transthoracic echocardiogram with M-mode and Doppler wasperformed.The left atrium is mildly dilated.Ejection Fraction = 40%.There is mild concentric left ventricular hypertrophy.There is mild to moderate mitral regurgitation.There is mild tricuspid regurgitation.Severe valvular aortic stenosis.Mild aortic regurgitation. 08/02/21 EF55%Dopper evidence of diastolic dysfunction Indira Zafar MD [address] [place] [address], [address], [place], [address] 08/24/2021 11:52:23 2 text/html 80 yo female presented to [facility] for soB. Patient has significant cardiac history including TAVR, Former Smoker, CHF, GerD, HL, Hypothyroidism, HTN. Patient has SOB with minimal exertion- across the room. Admits to wheezing and dry cough. Has worse syptoms around a dog. Admits to swelling to LE swelling- on BUmex twice daily CONSTITUTIONAL SYMPTOMS: fever NO, loss of appetite NO, weight loss NO, night sweats NOFAMILY HX: Brother- lung problemSMOKING STATUS: FORMER SMOKER Quit in 1992, 2ppd for >30 years. 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 There is no focal consolidation or pneumothorax.IMPRESSION:N o significant interval change. Stable interstitial prominencesuggesting pulmonary vascular congestion and trace pleural effusions CT Chest: 09/22/21 Right small pleural effusionEmphysema TTE:1Left VentricleThe left ventricle is normal in size. There is no thrombus. There is mildconcentric left ventricular hypertrophy. Ejection Fraction = 40%.Right VentricleThe right ventricle is grossly normal size.AtriaRight atrial size is normal. The left atrium is mildly dilated.Mitral ValveThere is no mitral valve stenosis. There is mild to moderate mitralregurgitation.Tricu spid ValveThere is no tricuspid stenosis. There is mild tricuspid regurgitation. PAsystolic pressure=38 mmHg.Aortic ValveSevere valvular aortic stenosis. Mild aortic regurgitation.Pulmonic ValveThe pulmonic valve is not well visualized.Great VesselsThe aortic root is normal size.Pericardium/PleuralT here is no pericardial effusion.Interpretation SummaryA two-dimensional transthoracic echocardiogram with M-mode and Doppler wasperformed.The left atrium is mildly dilated.Ejection Fraction = 40%.There is mild concentric left ventricular hypertrophy.There is mild to moderate mitral regurgitation.There is mild tricuspid regurgitation.Severe valvular aortic stenosis.Mild aortic regurgitation. 08/02/21 EF55%Dopper evidence of diastolic dysfunction --------- Interval Follow up 09/30/2021: Patient states she is doing a lot better. Indira Zafar MD [address] [place] [address], [address], [place], [id number] 09/30/2021 10:41:55 2 text/html 80 yo female presented to [facility] for SOB. Patient has significant cardiac history including TAVR, Former Smoker, CHF, GerD, HL, Hypothyroidism, HTN. Patient has SOB with minimal exertion- across the room. Admits to wheezing and dry cough. Has worse symptoms around a dog. Admits to swelling to LE swelling- on BUmex twice daily Home oxygen; Has inongen at home CONSTITUTIONAL SYMPTOMS: fever NO, loss of appetite NO, weight loss NO, night sweats NOFAMILY HX: Brother- lung problemSMOKING STATUS: FORMER SMOKER Quit in 1992, 2ppd for >30 years. 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 There is no focal consolidation or pneumothorax.IMPRESSION:N o significant interval change. Stable interstitial prominencesuggesting pulmonary vascular congestion and trace pleural effusions CT Chest: 09/22/21 Right small pleural effusionEmphysema TTE:01/06/2021eft VentricleThe left ventricle is normal in size. There is no thrombus. There is mildconcentric left ventricular hypertrophy. Ejection Fraction = 40%.Right VentricleThe right ventricle is grossly normal size.AtriaRight atrial size is normal. The left atrium is mildly dilated.Mitral ValveThere is no mitral valve stenosis. There is mild to moderate mitralregurgitation.Tricu spid ValveThere is no tricuspid stenosis. There is mild tricuspid regurgitation. PAsystolic pressure=38 mmHg.Aortic ValveSevere valvular aortic stenosis. Mild aortic regurgitation.Pulmonic ValveThe pulmonic valve is not well visualized.Great VesselsThe aortic root is normal size.Pericardium/PleuralT here is no pericardial effusion.Interpretation SummaryA two-dimensional transthoracic echocardiogram with M-mode and Doppler wasperformed.The left atrium is mildly dilated.Ejection Fraction = 40%.There is mild concentric left ventricular hypertrophy.There is mild to moderate mitral regurgitation.There is mild tricuspid regurgitation.Severe valvular aortic stenosis.Mild aortic regurgitation. 08/02/21 EF55%Dopper evidence of diastolic dysfunction --------- Interval Follow up 09/30/2021: Patient states she is doing a lot better. 12/06/21 Patient states she is doing much better and would like to come off of O2. Indira Zafar MD [address] [place] [address], [address], [place], [address], [facility] 12/06/2021 16:38:38 OBGyn Episode No OBEpisode recorded.
--- OUTSIDE RECORDS SUMMARY | 2025-07-09 19:36 | XMS_ITS | Encounter Summary ---
Author Organization [facility] Address [address] [facility] [place] [address] Phone Care Team Providers Care Supervisor Purification Name Role Phone Sahil Shin MD Primary Care Provider [phone] Encounter Details Date Type Department Care Team (Late st Contact Info) Description 12/04/2023 Orders Only [facility] [address] [facility] [address] [place] [address] Chronic kidney disease, stage 4 (severe) (HCC); Hypertensive chronic kidney disease, benign, with chronic kidney disease stage I through stage IV, or unspecified Social History Tobacco Use Types Packs/Day Years Used Date Smoking Tobacco: Never Assessed Comments Unknown Sex and Gender Information Value Date Recorded Sex Assigned at Not on file Legal Sex Female 12:45 PM EDT Gender Identity Not on file Sexual Orientation Not on file documented as of this encounter Plan of Treatment Not on file documented as of this encounter Visit Diagnoses Diagnosis Chronic kidney disease, stage 4 (severe) (HCC) Hypertensive chronic kidney disease, benign, with chronic kidney disease stage I through stage IV, or unspecified documented in this encounter Care Teams Supervisor Purification Relationship Specialty Start Date End Date Sahil Shin MD [address] [facility] [place] [address] PCP - General Internal Medicine 08/15/22 documented as of this encounter
[2025-07-09 19:46] VITALS: BP 133/86; PULSE 74; RESP 20; TEMP 36.5; O2SAT 92; BMI 32.1
[2025-07-09 19:50] VITALS: BP 133/86; PULSE 74; RESP 20; TEMP 36.5; O2SAT 92
--- NOTE | 2025-07-10 01:07 | W.ED.FALL ---
HPI - Fall General: Chief Complaint: Fall Stated Complaint: fall right knee injury Time Seen by Provider: 07/09/25 19:42 History of Present Illness: 84-year-old female complains of falling yesterday and injuring her right knee she denies any other injuries. Mechanical ground-level fall fall. She did hit her head. Denies loss consciousness denies blood thinners no nausea or vomiting no headache. Patient denies any other injuries Associated symptoms-after fall: Denies abdominal pain, chest pain or neck pain Related Data Home Medications ?Medication ?Instructions ?Recorded ?Confirmed levothyroxine 50 mcg capsule 50 mcg PO DAILY 11/18/23 08/12/24 Previous Rx's ?Medication ?Instructions ?Recorded fluticasone propionate 50 1 spray intranasal BID #16 grams 06/09/24 mcg/actuation nasal spray,suspension (Flonase Allergy Relief) doxycycline hyclate 100 mg capsule 100 mg PO BID #20 caps 06/18/24 bumetanide 2 mg tablet 2 mg PO BID #120 tabs 08/12/24 cholecalciferol (vitamin D3) 250 250 mcg PO .WEEKLY 12 weeks #12 08/12/24 mcg (10,000 unit) capsule caps metoprolol tartrate 50 mg tablet 50 mg PO DAILY #180 tabs 08/12/24 doxepin 10 mg capsule See Rx Instructions .Route 10/31/24 .COMPLEX #90 caps pravastatin 80 mg tablet 80 mg PO DAILY #90 tabs 11/03/24 allopurinol 100 mg tablet 100 mg PO DAILY #90 tabs 01/26/25 clopidogrel 75 mg tablet See Rx Instructions .Route 01/26/25 .COMPLEX #90 tabs pantoprazole 40 mg tablet,delayed 40 mg PO DAILY PRN acid reflux #60 01/26/25 release tabs potassium chloride 20 mEq 20 meq PO DAILY #90 tabs 03/12/25 tablet,extended release diclofenac sodium 75 mg 75 mg PO Q12H PRN pain #20 tabs 07/09/25 tablet,delayed release Allergies Allergy/AdvReac Type Severity Reaction Status Date / Time acetaminophen (From Percocet) Allergy ADR-Irritab Verified 08/12/24 10:55 le albuterol Allergy ADR-Irritab Verified 08/12/24 10:55 le oxycodone (From Percocet) Allergy ADR-Irritab Verified 08/12/24 10:55 le Review of Systems Const: Denies: fever(s) or chills Card: Denies: chest pain Resp: Denies: dyspnea GI: Denies: abdominal pain : Denies: dysuria, urinary frequency or urinary urgency Musc: Reports: joint pain; Denies: neck pain or back pain Skin/Breast: Denies: rash PFSH ED PFSH: Medical History Hyperlipidemia Peripheral artery disease CKD stage 4 secondary to hypertension Stenosis of right femoral artery stenting in 10/02 Gout Neuropathy Type 2 diabetes mellitus Hypothyroidism GERD (gastroesophageal reflux disease) CHF (congestive heart failure) Surgical History H/O laminectomy 1991, 1996, 2001 [facility] Aortic valve replaced [facility] Dr. Jain 01/31 History of right-sided carotid endarterectomy [facility] Dr Polanco 01/29 Hx of thyroidectomy partial, 1999, History of hysterectomy History of angioplasty History of left hip replacement History of endarterectomy Social History Smoking and tobacco/nicotine status: former use of tobacco/nicotine Quit status (tobacco/nicotine): has quit using Year quit tobacco: early Alcohol intake: never Substance/Drug Use: never Adopted: Yes (Grew up in foster care but never was adopted, knew mother and father) Caregiver/support person: No Lives independently: Yes Physical Exam Const: COMMON NORMALS: no acute distress GENERAL APPEARANCE: cooperative and comfortable ORIENTATION/CONSCIOUSNESS: Yes awake, Yes oriented to person, Yes oriented to place and Yes oriented to time HENMT: COMMON NORMALS: normocephalic, atraumatic and hearing grossly normal bilaterally HEAD & SCALP: normocephalic and atraumatic Resp: COMMON NORMALS: normal respiratory effort, No retractions, No use of accessory muscles and clear to auscultation bilaterally AUSCULTATION: clear to auscultation bilaterally Cardio: COMMON NORMALS: regular rate, regular rhythm and No murmurs present (Cardio) RATE: regular rate RHYTHM: regular rhythm GI: COMMON NORMALS: Soft to palpation and No hepatosplenomegaly present AUSCULTATION: Yes normoactive bowel sounds PALPATION: Yes Soft to palpation, No Tenderness to palpation present (GI), No Guarding due to palpation present (GI) and Yes No hepatosplenomegaly present Extremity: COMMON NORMALS: normal to inspection, capillary refill normal, no clubbing, cyanosis or edema, no calf tenderness and no pedal edema OTHER: Small joint effusion on examination of the right knee. No ligamentous instability or laxity send no obvious deformities no lacerations or abrasions Neuro: SENSORIUM/ORIENTATION: Yes oriented to person, Yes oriented to place and Yes oriented to time Skin: COMMON NORMALS: no rashes or lesions noted GENERAL SKIN EXAM: no rashes or lesions noted Course Vital Signs: Vital signs: Vital Signs Temperature 97.7 F 07/09/25 19:50 Pulse Rate 74 07/09/25 19:50 Respiratory Rate 20 H 07/09/25 19:50 Blood Pressure 133/86 07/09/25 19:50 Pulse Oximetry 92 07/09/25 19:50 Oxygen Delivery Me thod Nasal Cannula 07/09/25 19:50 Oxygen Flow Rate 2 07/09/25 19:50 MDM - Fall Medical Decision Making Medical decision making Social determinants: Good social support I reviewed the patient's medical record. I reviewed the patient's current home meds Alternate historians: None Differential diagnosis sprain versus fracture versus osteoarthritis Lab Review: None Imaging: Right knee x-ray no acute fracture or significant osteoarthritic changes Assessment of risk: Level of risk: Low Hospitalization considerations: No need for hospitalization Reexamination: Stable Assessment and plan: Patient has right knee pain as significant osteoarthritic pain. Suspect she has a mild sprain exacerbated by her osteoarthritis. Patient discharged home with diclofenac to use as needed and follow-up with her primary care doctor if has persistent pain Medical Records I reviewed the patient's medical records. Lab Data I reviewed the patient's lab results. Radiology Impressions Knee X-Ray 07/09/25 19:21 IMPRESSION: 1. Small joint effusion. 2. No acute fracture. All radiology interpretation(s) finalized by discharge Discharge Plan Discharge Patient Disposition: Home Clinical Impression: Right knee sprain, Osteoarthritis of right knee Condition: Stable Prescriptions: New diclofenac sodium 75 mg tablet,delayed release (DR/EC) 75 mg PO Q12H PRN (Reason: pain) Qty: 20 0RF No Action levothyroxine 50 mcg capsule 50 mcg PO DAILY bumetanide 2 mg tablet 2 mg PO BID Qty: 120 2RF metoprolol tartrate 50 mg tablet 50 mg PO DAILY Qty: 180 1RF cholecalciferol (vitamin D3) 250 mcg (10,000 unit) capsule 250 mcg PO .WEEKLY 84 Days Qty: 12 4RF fluticasone propionate [Flonase Allergy Relief] 50 mcg/actuation spray,suspension 1 spray intranasal BID Qty: 16 0RF Rx Instructions: administer into each nostril doxycycline hyclate 100 mg capsule 100 mg PO BID Qty: 20 0RF doxepin 10 mg capsule See Rx Instructions .ROUTE .COMPLEX Qty: 90 0RF Dose Instruction: take 1 capsule BY MOUTH AT BEDTIME FOR 30 DAYS Rx Instructions: take 1 capsule BY MOUTH AT BEDTIME FOR 30 DAYS pravastatin 80 mg tablet 80 mg PO DAILY Qty: 90 1RF allopurinol 100 mg tablet 100 mg PO DAILY Qty: 90 1RF clopidogrel 75 mg tablet See Rx Instructions .ROUTE .COMPLEX Qty: 90 1RF Dose Instruction: TAKE 1 TABLET BY MOUTH EVERY DAY Rx Instructions: TAKE 1 TABLET BY MOUTH EVERY DAY pantoprazole 40 mg tablet,delayed release (DR/EC) 40 mg PO DAILY PRN (Reason: acid reflux) Qty: 60 1RF potassium chloride 20 mEq tablet extended release 20 meq PO DAILY Qty: 90 1RF Discharge Orders: Discharge ED (Routine); Ordered 07/09/25 Ordered By: Omar Vance Discharge Diet: Usual diet Discharge Activity: Increase activity as tolerated Patient Instructions: Opioid Safety, Pain Management, Patient Portal & [place] Instructions Activity Restrictions/Additional Instructions: Thank you for choosing [facility] for your healthcare needs today. It is very important that you follow up as instructed or that you return to the Emergency Department should you have concerns or if your condition changes or worsens in any way. Emergency department visits are focused on emergent conditions, in some cases you may require further evaluation on an outpatient basis. You are seen in the emergency room with right knee pain. There is a small amount of fluid in the joint but there is no fractures you have a significant amount of arthritic changes. X-ray did not show any fractures. Will have you use diclofenac as needed if the knee does not begin to improve follow-up with your primary care doctor (Please note that included in your discharge packet is information concerning opioid safety and pain management. This information is given to all patients were discharged from the ER regardless of their discharge diagnosis or the medicines they usually take or are prescribed.) Print Language: Afghan Coding Level of Care Code ED [employer] Field Technician for Angelita Man
== END 2025-07-09 20:55 | disposition home or self-care (01) ==
PROVIDERS: Emergency Provider Family Medicine
DX: S83.91XA Sprain of unspecified site of right knee, initial encounter (principal); M17.11 Unilateral primary osteoarthritis, right knee; Z79.02 Long term (current) use of antithrombotics/antiplatelets; Z87.891 Personal history of nicotine dependence; E11.22 Type 2 diabetes mellitus with diabetic chronic kidney disease; I13.0 Hypertensive heart and chronic kidney disease with heart failure and stage 1 through stage 4 chronic kidney disease, or unspecified chronic kidney disease; N18.4 Chronic kidney disease, stage 4 (severe); I50.9 Heart failure, unspecified; E78.5 Hyperlipidemia, unspecified; W18.30XA Fall on same level, unspecified, initial encounter
CPT/HCPCS: 73562; 99283